=== PATIENT | female | born 1995 ===

== ENCOUNTER 2022-02-10 15:17 | Inpatient (IN) | payer MEDICAID ==
[2022-02-10] MEDS ORDERED: ACETAMINOPHEN TAB 325 MG TAB PO PRN (16:00)
[2022-02-10] MEDS ORDERED: MAGNESIUM HYDROXIDE 2,400 MG/10 ML CUP PO PRN (16:00)
[2022-02-10] MEDS ORDERED: MAG HYDROX/AL HYDROX/SIMETH 30 ML CUP PO PRN (16:00)
[2022-02-10] MEDS ORDERED: HALOPERIDOL LACTATE 5 MG/ML 1 ML VIAL IM PRN (16:09)
[2022-02-10] MEDS ORDERED: LORazepam 1 MG/0.5 ML VIAL IM PRN (16:09)
[2022-02-10] MEDS: SUCRALFATE 1 GM TAB PO SCH ×2 (18:59→20:59)
[2022-02-10] MEDS: PANTOPRAZOLE 40 MG TABLET PO SCH (18:59)
[2022-02-10] MEDS: LORazepam 1 MG TAB PO PRN (19:00)
[2022-02-10] MEDS: haloperidoL 5 MG TAB PO PRN (20:59)
[2022-02-10] MEDS ORDERED: QUEtiapine 100 MG TAB PO SCH (21:00)
[2022-02-11] MEDS: SUCRALFATE 1 GM TAB PO SCH ×4 (08:21→20:33)
[2022-02-11] MEDS: ESCITALOPRAM 20 MG TAB PO SCH (08:21)
[2022-02-11] MEDS: PANTOPRAZOLE 40 MG TABLET PO SCH ×2 (08:21→17:39)
[2022-02-11] MEDS: LORazepam 1 MG TAB PO PRN ×2 (08:21→17:47)
[2022-02-11] MEDS ORDERED: NICOTINE 14MG/24HR PATCH TRANSDERM SCH (09:00)
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
[2022-02-11] MEDS ORDERED: MAG HYDROX/AL HYDROX/SIMETH 355 ML BOTTLE PO PRN (15:00)
[2022-02-11] MEDS: ARIPiprazole 5 MG TAB PO SCH (15:52)
[2022-02-11 16:09] LABS: Basophils # (A) 0.1 k/uL (0-0.2); Basophils % (A) 1 %; Eosinophils # (A) 0.1 k/uL (0-0.7); Eosinophils % (A) 1 %; HCT 44.1 % (34.0-46.0); HGB 14.4 gm/dL (11.4-16.0); Lymphocytes # (A) 1.6 k/uL (1.0-4.8); Lymphocytes % (A) 17 %; MCH 28.6 pg (25.0-35.0); MCHC 32.7 g/dL (31.0-37.0); MCV 87.6 fL (80.0-100.0); Mean Platelet Volume 7.6; Monocytes # (A) 0.4 k/uL (0-1.0); Monocytes % (A) 4 %; Neutrophils # (A) 7.2 k/uL (1.3-7.7); Neutrophils % (A) 76 %; Platelet Count 274 k/uL (150-450); RBC 5.03 m/uL (3.80-5.40); RDW 13.4 % (11.5-15.5); WBC 9.5 k/uL (3.8-10.6)
[2022-02-11 16:56] LABS: ALT 37 U/L (4-34); AST 26 U/L (14-36); African American GFR (CKD) >90 (>60 ml/min/1.73 sqM); Albumin 4.4 g/dL (3.5-5.0); Alkaline Phosphatase 78 U/L (38-126); Anion Gap 9 mmol/L; Bilirubin, Delta 0.3 mg/dL (0.0-0.2); Bilirubin,Unconjugated 0.7 mg/dL (0.0-1.1); Blood Urea Nitrogen 12 mg/dL (7-17); Calcium 9.4 mg/dL (8.4-10.2); Carbon Dioxide 23 mmol/L (22-30); Chloride 107 mmol/L (98-107); Glucose 90 mg/dL (74-99); Non-African American GFR(CKD) >90 (>60 ml/min/1.73 sqM); Potassium 4.5 mmol/L (3.5-5.1); Sodium 139 mmol/L (137-145); Total Protein 7.2 g/dL (6.3-8.2)
[2022-02-11] MEDS ORDERED: traZODone HCL 50 MG TAB PO SCH (21:00)
[2022-02-11 23:47] LABS: Chol/HDL Ratio 2.78 Ratio; LDL Cholesterol,Calculated 77.8 mg/dL (0.0-131.0); VLDL Calculation 13.74 mg/dL (5.00-40.00)
--- NOTE | 2022-02-12 02:32 | P.MDCNMH ---
History of Present Illness H&P Date: 02/12/22 Chief Complaint: medical eval 26 year old female with no significant past medical history patient comes in from [facility] for psych evaluation, due to suicidal ideation. patient at this time , denies any suicidal or homicidal ideation, she denies any hallucination. patient denies any medical concerns , denies fever, chills. denies URI symptoms, denies chest pain , trouble breathing ,denies abd pain , nausea or vomiting, denies any changes in bowel or urinary habits. patient denies any smoking, illicit drugs, or heavy alcohol blood work unremarkable Review of Systems Pertinent positives as noted in HPI. All other systems were reviewed and are negative Past Medical History Past Medical History: No Reported History Smoking Status: Unknown if ever smoked - Past Family History familyi Additional Family Medical History / Comment(s): no cancer , no cad Medications and Allergies Allergies Allergy/AdvReac Type Severity Reaction Status Date / Time No Known Allergies Allergy Verified 02/10/22 23:04 Physical Exam Constitutional: No acute distress, conversant, pleasant Eyes: Anicteric sclerae, moist conjunctiva, Pupils equal round reactive to light ENMT: NC/AT Oropharynx clear, no erythema, or exudates Neck: Supple, no masses, or JVD No carotid bruits No thyromegaly Lungs: Clear to auscultation Clear to percussion Normal respiratory effort, no accessory muscle use Cardiovascular: Heart regular in rate and rhythm, No murmurs, gallops, or rubs No peripheral edema Abdominal: Soft Nontender, no guarding, rebound or rigidity Abdomen moving with respiration Normoactive bowel sounds Skin: Normal temperature, tone, texture, turgor Extremities: No digital cyanosis No clubbing Pedal pulses intact and symmetrical Radial pulses intact and symmetrical No calf tenderness Psychiatric: Alert and oriented to person, place and time Neuro Muscles Strength 5/5 in all 4 extremities Sensation to light touch grossly present throughout Cranial nerves II-XII grossly intact Lymphatics: no palpable cervical or supraclavicular lymph nodes Cranial Nerve Examination - Cranial Nerves Cranial Nerve II- Optic: Intact Cranial Nerve III- Oculomotor: Intact Cranial Nerve IV- Trochlear: Intact Cranial Nerve V- Trigeminal: Intact Cranial Nerve - Abducens: Intact Cranial Nerve VII- Facial: Intact Cranial Nerve VIII- Auditory: Intact Cranial Nerve IX- Glossopharyngeal: Intact Cranial Nerve X- Vagus: Intact Cranial Nerve XI- Accessory: Intact Cranial Nerve XII- Hypoglossal: Intact Results CBC & Chem 7: 02/11/22 15:17 02/11/22 15:17 Labs: Abnormal Lab Results - Last 24 Hours (Table) 02/11/22 Range/Units 15:17 Delta Bilirubin 0.3 H (0.0-0.2) mg/dL ALT 37 H (4-34) U/L Assessment and Plan Assessment: suicidal ideation management per psych obesity counseled about weight loss and life style modification blood work reviewed , unremarkable Thank you for allowing us to participate in the care of this patient. We will follow peripherally. Do not hesitate to contact us with questions. Someone can be reached from the [facility]Note 3] hospitalist group at all hours of the day at [phone].
[2022-02-12] MEDS: LORazepam 1 MG TAB PO PRN ×2 (05:17→12:14)
[2022-02-12 06:15] VITALS: BP 142/66; PULSE 116; RESP 14; TEMP 98
[2022-02-12] MEDS: ARIPiprazole 5 MG TAB PO SCH (08:45)
[2022-02-12] MEDS: PANTOPRAZOLE 40 MG TABLET PO SCH (08:45)
[2022-02-12] MEDS: SUCRALFATE 1 GM TAB PO SCH ×2 (08:45→12:05)
[2022-02-12] MEDS: ESCITALOPRAM 20 MG TAB PO SCH (08:45)
[2022-02-12] MEDS: haloperidoL 5 MG TAB PO PRN (09:24)
[2022-02-12] MEDS ORDERED: hydrOXYzine pamoate 25 MG CAP PO PRN (09:48)
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
== END 2022-02-12 12:13 | disposition home or self-care (01) | DRG 883 ==
LOC: 3MHU 18:56
PROVIDERS: ADMIT Psychiatry & Neurology Psychiatry; ATTEND Psychiatry & Neurology Psychiatry
DX: F60.3 Borderline personality disorder (principal); R45.851 Suicidal ideations; Z68.41 Body mass index [BMI] 40.0-44.9, adult; Z71.51 Drug abuse counseling and surveillance of drug abuser; F17.210 Nicotine dependence, cigarettes, uncomplicated; F41.9 Anxiety disorder, unspecified; F40.8 Other phobic anxiety disorders; F31.9 Bipolar disorder, unspecified; G47.00 Insomnia, unspecified; Z56.0 Unemployment, unspecified; Z79.899 Other long term (current) drug therapy; E66.9 Obesity, unspecified; Z71.3 Dietary counseling and surveillance
CPT/HCPCS: 80053; 80061; 82248; 83036; 84443; 85025